=== PATIENT | female | born 1950 | race Caucasian/White ===

== ENCOUNTER 2019-04-04 09:19 | Outpatient (CLI) | payer MEDICARE, OTHER, SELFPAY ==
--- NOTE | ~2019-04-04 | MM_ITS ---
EXAMINATION: MM screening [facility] BI w keisha HISTORY: Screening mammogram TECHNIQUE: Craniocaudal and mediolateral oblique 3-D tomosynthesis images were obtained and synthetic 2-D images were generated. CAD analysis was submitted and interpreted. COMPARISON: 03/29/2018, 03/16/2017, 02/05/2015 BREAST PARENCHYMAL COMPOSITION: The breasts are heterogeneously dense, which may obscure small masses . FINDINGS: There is no evidence of suspicious mass, calcification, or architectural distortion to sugg est malignancy in either breast. There has been no suspicious interval change. IMPRESSION: 1. No mammographic evidence of malignancy. 2. Recommend routine screening mammography in one year. BI-RADS Category 1: Negative Reviewed, dictated and finalized at location A. OPERATOR
[2019-04-04 10:50] LABS: Hematocrit 40.4 % (37.0-47.0); Hemoglobin 13.5 g/dL (12.0-15.0); Mean Corpuscular HGB Conc 33.4 g/dl (32-36); Mean Corpuscular Volume 95.7 fl (80-100); Platelet Count Result 246 k/mm3 (150-375); Red Blood Count 4.22 M/mm3 (4.2-5.4); Red Cell Distribution Width 12.6 % (11.5-14.5); White Blood Count 6.7 K/mm3 (4.5-10.0)
[2019-04-04 11:03] LABS: Alanine Aminotransferase 24 U/L (4-35); Albumin Level 4.3 g/dL (3.5-5.1); Alkaline Phosphatase 66 U/L (38-126); Aspartate Amino Transferase 28 U/L (14-36); Bilirubin,Total 0.6 mg/dL (0.2-1.3); Blood Urea Nitrogen 14 mg/dL (7-17); Calcium 9.1 mg/dL (8.4-10.2); Carbon Dioxide 27 mmol/L (22-30); Chloride 99 mmol/L (98-107); Cholesterol 193 mg/dL (0-200); Estimated Glomerular Filt Rate > 60; Glucose 107 mg/dL (65-105); HDL Direct 81 mg/dL; Potassium 4.3 mmol/L (3.4-5.0); Sodium 134 mmol/L (137-145); Triglycerides 40 mg/dL (<150)
[2019-04-04 11:14] LABS: LDL Cholesterol Direct 95 mg/dL
[2019-04-04 11:33] LABS: Thyroid Stimulating Hormone 0.738 uIU/mL (0.465-4.680)
[2019-04-04 12:03] LABS: Free T4 Free Thyroxine 1.15 ng/mL (0.78-2.19)
== END 2019-04-04 09:20 | disposition home or self-care (01) ==
LOC: ANHIMG 09:22
PROVIDERS: PCP Internal Medicine; Visit Provider Obstetrics & Gynecology
DX: Z12.31 Encounter for screening mammogram for malignant neoplasm of breast (principal); R53.83 Other fatigue; E03.9 Hypothyroidism, unspecified; E78.00 Pure hypercholesterolemia, unspecified
CPT/HCPCS: 36415; 77063; 77067; 80053; 80061; 84439; 84443; 85027

== ENCOUNTER 2019-11-27 09:24 | Outpatient (CLI) | payer MEDICARE, SELFPAY ==
--- NOTE | ~2019-11-27 | CT_ITS ---
EXAMINATION: CT brain wo/w con DATE: 11/27/2019 10:05 INDICATION: Headache. TECHNIQUE: Computed tomography (CT) of the head was performed without and with 100 mL Omnipaque 350 i ntravenous contrast. The mA was adjusted according to patient size. Iterative reconstruction techniqu e was employed. The dose-length product was 1210.67 mGy-cm. COMPARISON: None FINDINGS: There is no intracranial hemorrhage, acute infarction, or abnormal intracranial mass lesion . The ventricles are normal in size. There is mucosal thickening in the paranasal sinuses including n ear complete opacification of left sphenoid sinus. There is sclerosis of the love of left sphenoid s inus, consistent with chronic sinusitis. The mastoid air cells are normal. The orbits are normal. IMPRESSION: 1. Normal brain. 2. Chronic sinusitis. Reviewed, dictated and finalized at location A.
[2019-11-27 09:58] LABS: Estimated Glomerular Filt Rate 55
== END 2019-11-27 09:25 | disposition home or self-care (01) ==
PROVIDERS: PCP Internal Medicine; Visit Provider Internal Medicine
DX: R51.0 Headache with orthostatic component, not elsewhere classified (principal); J32.9 Chronic sinusitis, unspecified
CPT/HCPCS: 70470; Q9967

== ENCOUNTER 2020-04-07 10:25 | Outpatient (CLI) | payer MEDICARE, SELFPAY ==
--- NOTE | ~2020-04-07 | MM_ITS ---
EXAMINATION: MM screening [facility] BI w keisha HISTORY: Screening mammogram TECHNIQUE: Craniocaudal and mediolateral oblique 3-D tomosynthesis images were obtained and synthetic 2-D images were generated. CAD analysis was submitted and interpreted. COMPARISON: April 04, 2019, March 29, 2018 and 03/16/2017 bilateral digital screening mammogram ex aminations BREAST PARENCHYMAL COMPOSITION: The breasts are heterogeneously dense, which may obscure small masses . FINDINGS: Stable mild fibroglandular asymmetry. There is no evidence of suspicious mass, calcificatio n, or architectural distortion to suggest malignancy in either breast. There has been no suspicious i nterval change. IMPRESSION: 1. No mammographic evidence of malignancy. 2. Recommend routine screening mammography in one year. BI-RADS Category 2: Benign finding(s). Reviewed, dictated and finalized at location A. UE KEEPER
== END 2020-04-07 10:26 | disposition home or self-care (01) ==
LOC: ANHIMG 10:29
PROVIDERS: PCP Internal Medicine; Visit Provider Obstetrics & Gynecology
DX: Z12.31 Encounter for screening mammogram for malignant neoplasm of breast (principal)
CPT/HCPCS: 77063; 77067

== ENCOUNTER 2020-06-07 10:34 | Emergency (ER) | payer MEDICARE, SELFPAY ==
--- NOTE | ~2020-06-07 | XR_ITS ---
EXAMINATION: XR ankle LT min 3V EXAM DATE: 06/07/2020 10:49 INDICATION: Injured on the treadmill. Pain posterior lt ankle. Initial encounter. TECHNIQUE: Left ankle frontal, lateral and oblique projections obtained and reviewed. There is no pr ior study for comparison. FINDINGS: The left ankle mortise appears intact. Unusually high arch, but similar appearance on prio r study. There are no acute fractures or dislocations identified. There is no subcutaneous gas. Th e soft tissue is unremarkable. There are no radiopaque foreign bodies. IMPRESSION: 1. XR ankle LT min 3V exam without acute osseous findings. Reviewed, dictated and finalized at location A.
[2020-06-07 10:43] VITALS: BP 168/68; PULSE 81; RESP 12; TEMP 36.3; O2SAT 100
--- NOTE | 2020-06-07 11:06 | ED.LOWEXIN ---
HPI - Extremity Injury (Lower) General Chief Complaint: Extremity Injury, Lower Stated Complaint: lt ankle injury Time Seen by Provider: 06/07/20 10:58 Source: patient and RN notes reviewed Mode of arrival: ambulatory Limitations: no limitations History of Present Illness HPI Narrative: Patient presents today complaining of left ankle pain. She was getting on her treadmill this morning and twisted her ankle at 745 this morning. She applied ice and currently rates her pain 4/10. She has taken no medication for pain prior to arrival. Pain increases with walking. She has been ambulating, only putting pressure on her heel. MD complaint: ankle injury Related Data Home Medications Medication Instructions Recorded Confirmed estradiol 1 gm VAGINAL WEEKLY 02/04/19 02/11/20 melatonin 5 mg capsule mg PO .hs PRN cap 02/04/19 02/11/20 multivitamin 1 tablet PO DAILY 02/04/19 02/11/20 cream base no.143 (bulk) 1 applic TOPICAL gm 02/05/19 02/11/20 magnesium 200 mg tablet 400 mg PO DAILY tablet 02/11/20 02/11/20 Allergies Allergy/AdvReac Type Severity Reaction Status Date / Time amoxicillin Allergy Mild rash Verified 06/07/20 10:46 Penicillins Allergy Mild RASH Verified 06/07/20 10:46 Review of Systems Review of Systems: Narrative: CONSTITUTIONAL: Denies body aches, fever, chills, or sweats. EYES: Denies visual changes, redness, or discharge. ENT: Denies rhinorrhea, congestion, sore throat, or otalgia. CARDIOVASCULAR: Denies chest pain, palpitations, or edema. RESPIRATORY: Denies cough or dyspnea. GASTROINTESTINAL: Denies abdominal pain, nausea, vomiting, or diarrhea. GENITOURINARY: Denies dysuria or hematuria. SKIN: Denies rash, itching, or wounds. MUSCULOSKELETAL: Denies back pain, or myalgia. + Left ankle pain NEUROLOGIC: Denies headache, numbness, tingling, or weakness. PSYCH: Denies depression or anxiety. [facility] Family History Family History Father Family history of lung cancer Patient's father is Social History Social History Smoking packs per day: 0.5 Smoking cigarettes per day: 10.0 Years smoked: 10 Smoking pack-years: 5.00 Smoking status: Former smoker Tobacco type: cigarettes Second hand tobacco smoke exposure: No Smoking end date: 02/26/09 Alcohol intake: current Comments At time of signature, I have reviewed and agree with nursing past medical, surgical, social and family history unless otherwise noted. Please see nursing chart for further information. There is no relevant family history pertinent to the presenting complaint Exam Narrative: Exam Narrative: GENERAL: Well-appearing, well-nourished, and in no acute distress. HEAD: Normocephalic, atraumatic. EYES: EOMI. No redness or drainage. Conjunctivae normal. ENT: Mucous membranes pink and moist. NECK: Normal AROM. CHEST: No respiratory distress. EXTREMITIES: Left ankle: Soft tissue tenderness posteriorly and below the lateral malleolus. No edema, ecchymosis to this area. No tenderness to the Achilles tendon. No tenderness to the lateral or medial malleolus. No tenderness to the plantar aspect of the calcaneus. No tenderness to the remainder of the foot, nor any edema or ecchymosis. Distal sensation intact. Capillary refill normal. Pedal pulse normal. Full range of motion of the ankle and all toes. SKIN: Warm, dry, no rash. Capillary refill normal. Normal skin turgor. NEURO: No focal deficits. Alert and oriented x3. Gait steady. PSYCH: Normal affect. No signs of depression or anxiety. Course Vital Signs Vital signs: Vital Signs Temperature 97.4 F L 06/07/20 10:43 Pulse Rate 81 06/07/20 10:43 Respiratory Rate 12 06/07/20 10:43 Blood Pressure 168/68 H 06/07/20 10:43 Pulse Oximetry 100 06/07/20 10:43 Temperature 97.4 F L 06/07/20 10:43 Pulse Rate 81 06/07/20 10:43
== END 2020-06-07 11:15 | disposition home or self-care (01) ==
PROVIDERS: Emergency Provider Nurse Practitioner; PCP Internal Medicine
DX: S93.402A Sprain of unspecified ligament of left ankle, initial encounter (principal); X50.9XXA Other and unspecified overexertion or strenuous movements or postures, initial encounter; Z87.891 Personal history of nicotine dependence
CPT/HCPCS: 73610; 99213; G0463

== ENCOUNTER 2021-04-29 09:07 | Outpatient (CLI) | payer MEDICARE, SELFPAY ==
--- NOTE | ~2021-04-29 | MM_ITS ---
EXAMINATION: MM screening [facility] BI w keisha HISTORY: Screening mammogram TECHNIQUE: Craniocaudal and mediolateral oblique 3-D tomosynthesis images were obtained and synthetic 2-D images were generated. CAD analysis was submitted and interpreted. COMPARISON: 04/07/2020, 04/04/2019, 03/29/2018 BREAST PARENCHYMAL COMPOSITION: The breasts are heterogeneously dense, which may obscure small masses . FINDINGS: There is no evidence of suspicious mass, calcification, or architectural distortion to sugg est malignancy in either breast. There has been no suspicious interval change. IMPRESSION: 1. No mammographic evidence of malignancy. 2. Recommend routine screening mammography in one year. BI-RADS Category 1: Negative Reviewed, dictated and finalized at location A. MENTAL METAL ERECTOR
== END 2021-04-29 09:08 | disposition home or self-care (01) ==
PROVIDERS: PCP Internal Medicine; Visit Provider Obstetrics & Gynecology
DX: Z12.31 Encounter for screening mammogram for malignant neoplasm of breast (principal)
CPT/HCPCS: 77063; 77067

== ENCOUNTER 2021-05-20 00:59 | Day surgery (SDC) | payer MEDICARE, SELFPAY ==
[2021-05-11 10:30] VITALS: BMI 23.4
[2021-05-20 06:46] VITALS: BP 133/82; PULSE 73; RESP 18; TEMP 36; O2SAT 99; BMI 25.2
[2021-05-20] MEDS: LACTATED RINGERS 1,000 ML 150 ML IV CONT (06:59)
--- NOTE | 2021-05-20 07:32 | WPDGICN ---
Assessment and Plan Assessment and plan (1) Encounter for screening colonoscopy: Code(s): Z12.11 - Encounter for screening for malignant neoplasm of colon Status: Acute Assessment and Plan: Patient presents for screening colonoscopy. She appears to be at average risk for colon polyps. Further recommendations will be given after endoscopy. GI Consult Note Consult date/time: 05/20/21 07:32 HPI: Brenda Alfred is a 70 year old female Presents for screening colonoscopy. Patient's current weight appetite and bowel movements are normal. She denies abdominal pain. She has had no bleeding. Family history noncontributory. Patient had a previous colonoscopy 2009 that was unremarkable. She presents today for routine colonoscopy neoplasia screening. Review of Systems Review of Systems: All systems reviewed & are unremarkable except as noted in HPI and below PMFSH Family History Family History Father Family history of lung cancer Patient's father is Social History Social History Smoking packs per day: 0.5 Smoking cigarettes per day: 10.0 Years smoked: 10 Smoking pack-years: 5.00 Smoking status: Former smoker Tobacco type: cigarettes Second hand tobacco smoke exposure: No Smoking end date: 02/26/09 Alcohol intake: current Drinks per week: 5 Living arrangements: with family Gender identity (if verbalized by the patient): Female Spiritual care concerns: No Meds Home Medications and Allergies Home Medications Medication Instructions Recorded Confirmed Type estradiol 1 gm VAGINAL WEEKLY 02/04/19 05/11/21 History melatonin 5 mg capsule 5 mg PO HS PRN cap 02/04/19 05/11/21 History multivitamin 1 tablet PO DAILY 02/04/19 05/11/21 History magnesium 200 mg tablet 400 mg PO DAILY tablet 02/11/20 05/11/21 History fluticasone propionate 50 2 spray INTRANASAL DAILY PRN #15.8 03/05/20 05/11/21 Rx mcg/actuation nasal ml spray,suspension levothyroxine 50 mcg tablet 50 mcg PO DAILY #30 tablet 04/22/21 05/11/21 Rx ascorbic acid (vitamin C) 500 mg PO DAILY 05/11/21 05/11/21 History cholecalciferol (vitamin D3) 25 mcg PO DAILY 05/11/21 05/11/21 History [Vitamin D3] zinc 50 mg PO DAILY 05/11/21 05/11/21 History Allergies Allergy/AdvReac Type Severity Reaction Status Date / Time No Known Allergies Allergy Verified 05/11/21 10:29 Vital Signs Vital Signs - 24 hr 05/20/21 06:46 Temperature 96.8 F L Pulse Rate 73 Respiratory Rate 18 Blood Pressure 133/82 Pulse Oximetry 99 Exam Narrative: Physical exam reveals patient to be alert. Vital signs stable. HEENT exam is unremarkable. Patient is anicteric. Lungs are clear to auscultation and percussion. Heart is without murmur or extra sounds. Abdomen bowel sounds are present soft nontender with no organomegaly. Digital external rectal exam is normal.
--- NOTE | 2021-05-20 07:51 | P.PNAN_ITS ---
Anes - Initial Pre Proc Eval Procedure: Operation Date: 05/20/21 08:00 Proposed Procedures p Screening Colonoscopy - Otis Sotelo MD Date/Time: 05/20/21 07:51 Surgeon: Otis Sotelo MD Pre Op Diagnosis: neoplasm screening Patient Data Age: 70 Gender: F Height: 1.7 m Weight: 73.2 kg Last Vital Signs Temp 36.0 C L 05/20/21 06:46 Pulse 73 05/20/21 06:46 Resp 18 05/20/21 06:46 BP 133/82 05/20/21 06:46 Pulse Ox 99 05/20/21 06:46 Allergies Allergy/AdvReac Type Severity Reaction Status Date / Time No Known Allergies Allergy Verified 05/11/21 10:29 Home Medications Medication Instructions Recorded Confirmed Type estradiol 1 gm VAGINAL WEEKLY 02/04/19 05/11/21 History melatonin 5 mg capsule 5 mg PO HS PRN cap 02/04/19 05/11/21 History multivitamin 1 tablet PO DAILY 02/04/19 05/11/21 History magnesium 200 mg tablet 400 mg PO DAILY tablet 02/11/20 05/11/21 History fluticasone propionate 50 2 spray INTRANASAL DAILY PRN #15.8 03/05/20 05/11/21 Rx mcg/actuation nasal ml spray,suspension levothyroxine 50 mcg tablet 50 mcg PO DAILY #30 tablet 04/22/21 05/11/21 Rx ascorbic acid (vitamin C) 500 mg PO DAILY 05/11/21 05/11/21 History cholecalciferol (vitamin D3) 25 mcg PO DAILY 05/11/21 05/11/21 History [Vitamin D3] zinc 50 mg PO DAILY 05/11/21 05/11/21 History Patient hx anesthesia problems: none Family hx anesthesia problems: none Results Review: All pre-operative results and documents have been reviewed as part of the pre-operative evaluation. PMFSH Past Medical History Medical History Hypothyroidism Family History Family History Father Family history of lung cancer Patient's father is Social History Social History Smoking packs per day: 0.5 Smoking cigarettes per day: 10.0 Years smoked: 10 Smoking pack-years: 5.00 Smoking status: Former smoker Tobacco type: cigarettes Second hand tobacco smoke exposure: No Smoking end date: 02/26/09 Alcohol intake: current Drinks per week: 5 Living arrangements: with family Gender identity (if verbalized by the patient): Female Spiritual care concerns: No Anes - Eval Final PreProcedure Day of Procedure 05/20/21 07:51 Patient weight: normal Heart: regular rate and rhythm Lungs: clear to auscultation Airway: Mallampati scale class II Neurological: alert and oriented Last oral intake: >/= 8 hours ASA classification: II Emergent: no Anesthetic plan: proceed Anesthesia type and monitoring: general GIVS and standard monitoring Results Review: All pre-operative results and documents have been reviewed as part of the pre-operative evaluation. Informed Consent: The patient's anesthetic plan and its attendant risks and bene fits were discussed with the patient/family/POA. Questions were solicited and answers provided to the satisfaction of the patient/family/POA.
[2021-05-20 08:40] VITALS: BP 126/70; PULSE 70; RESP 21; O2SAT 99
[2021-05-20 08:50] VITALS: BP 155/73; PULSE 68; RESP 24; O2SAT 100
[2021-05-20 09:00] VITALS: BP 140/85; PULSE 75; RESP 23; O2SAT 100
== END 2021-05-20 09:08 | disposition home or self-care (01) ==
PROVIDERS: PCP Internal Medicine; Visit Provider Internal Medicine Gastroenterology
PROC: 0DJD8ZZ Inspection of Lower Intestinal Tract, Via Natural or Artificial Opening Endoscopic (ICD-10-PCS; CPT 45378; principal; 2021-05-20 08:00)
DX: Z12.11 Encounter for screening for malignant neoplasm of colon (principal); D12.2 Benign neoplasm of ascending colon; K57.30 Diverticulosis of large intestine without perforation or abscess without bleeding; K64.8 Other hemorrhoids; E03.9 Hypothyroidism, unspecified; Z87.891 Personal history of nicotine dependence
CPT/HCPCS: 45385; 88305; J2704; J7120

== ENCOUNTER 2022-07-04 16:57 | Outpatient (CLI) | payer MEDICARE, SELFPAY ==
--- NOTE | ~2022-07-04 | XR_ITS ---
AP, oblique, and lateral views of the left great toe CLINICAL HISTORY: Pain FINDINGS: There is a transverse fracture through the distal portion of the first proximal phalanx, mi ldly displaced. No definite intra-articular extension. No other fracture or dislocation seen. Joint s paces are preserved. Soft tissues are unremarkable. IMPRESSION: Transverse, mildly displaced traumatic fracture of the distal portion of the first proximal phalanx. No definite intra-articular extension. Reviewed, dictated and finalized at location . IMPRESSION: Transverse, mildly displaced traumatic fracture of the distal portion of the fi rst proximal phalanx. No definite intra-articular extension.
--- NOTE | ~2022-07-04 | XR_ITS ---
Left ankle Technique: AP, oblique, and lateral views were obtained. Clinical History: Pain Findings: No acute fracture or dislocation is seen. Osseous alignment is anatomic. Ankle mortise and other visualized joint spaces are preserved. Soft tissues are otherwise unremarkable. Impression: Unremarkable left ankle. Reviewed, dictated and finalized at location . Impression: Unremarkable left ankle.
== END 2022-07-04 16:58 | disposition home or self-care (01) ==
PROVIDERS: PCP Internal Medicine; Visit Provider Internal Medicine
DX: S92.412A Displaced fracture of proximal phalanx of left great toe, initial encounter for closed fracture (principal); X58.XXXA Exposure to other specified factors, initial encounter
CPT/HCPCS: 73600; 73660

== ENCOUNTER 2022-08-16 08:37 | Outpatient (CLI) | payer MEDICARE, OTHER, SELFPAY ==
--- NOTE | ~2022-08-16 | MM_ITS ---
EXAMINATION: MM screening [facility] BI w keisha HISTORY: Screening mammogram TECHNIQUE: Craniocaudal and mediolateral oblique 3-D tomosynthesis images were obtained and synthetic 2-D images were generated. CAD analysis was submitted and interpreted. COMPARISON: 04/2021, 04/07/2020, 04/04/2019 bilateral screening mammogram examinations BREAST PARENCHYMAL COMPOSITION: The breasts are heterogeneously dense, which may obscure small masses . FINDINGS: There is no evidence of suspicious mass, calcification, or architectural distortion to sugg est malignancy in either breast. There has been no suspicious interval change. IMPRESSION: 1. No mammographic evidence of malignancy. 2. Recommend routine screening mammography in one year. BI-RADS Category 1: Negative Reviewed, dictated and finalized at location A.
== END 2022-08-16 08:38 | disposition home or self-care (01) ==
LOC: ANHIMG 08:39
PROVIDERS: PCP Internal Medicine; Visit Provider Obstetrics & Gynecology
DX: Z12.31 Encounter for screening mammogram for malignant neoplasm of breast (principal)
CPT/HCPCS: 77063; 77067

== ENCOUNTER 2022-10-16 13:08 | Outpatient (CLI) | payer MEDICARE, SELFPAY ==
[2022-10-16 14:28] LABS: Appearance Urine Cloudy (Clear); Bacteria Urine 4+ /hpf; Bilirubin Urine Negative (Negative); Blood Urine 2+ (Negative); Color Urine Yellow (Yellow); Glucose Urine UA Negative (Negative); Ketones Urine Negative (Negative); Leukocyte Esterase Ur 3+ LEU/UL (Negative); Nitrate Urine Positive (Negative); Non Pathogenic Casts 0-2; Protein Urine Negative (Negative); RBC Urine 21-50 /hpf (0-2); Specific Grav Ur 1.012 (1.001-1.035); Squamous Epithelial Cell Urine None seen /hpf (Few); Urobilinogen Urine 0.2 mg/dL (<2.0); WBC Urine >100 /hpf
[2022-10-16 14:40] LABS: Add Urine Microscopic? YES
== END 2022-10-16 13:09 | disposition home or self-care (01) ==
LOC: ANHLAB 13:09
PROVIDERS: PCP Internal Medicine; Visit Provider Internal Medicine
DX: R30.0 Dysuria (principal)
CPT/HCPCS: 81001; 87077; 87086; 87186

== ENCOUNTER 2023-08-12 02:40 | Emergency (ER) | payer MEDICARE, SELFPAY ==
[2023-08-12 02:52] VITALS: BP 143/70; PULSE 80; RESP 16; TEMP 36.7; O2SAT 99
[2023-08-12] MEDS: TETANUS,DIPHTHERIA,AC PERTUSSIS ADULT (0.5 ML) BOOSTRIX IM (03:17)
[2023-08-12] MEDS: ceFAZolin SODIUM 1 GM VIAL IV PUSH (03:17)
[2023-08-12] MEDS: ACETAMINOPHEN 500 MG TABLET 1000 MG PO (03:29)
--- NOTE | 2023-08-12 03:55 | ED.GENADULT ---
HPI - General Adult General Chief complaint: Extremity Injury, Upper Stated complaint: left arm wound Time Seen by Provider: 08/12/23 02:51 History of Present Illness HPI narrative: This is a 72-year-old female presenting ED with chief complaint of an arm laceration. Patient got up to use the restroom and tripped hitting her arm on a door stop. She sustained a large laceration to her left arm. No other injuries. no functional deficits to the hand. + ETOH. Related Data Home Medications Medication Instructions Recorded Confirmed estradiol 0.01% (0.1 mg/gram) 1 gm vaginal WEEKLY 02/04/19 07/04/23 vaginal cream (Estrace) melatonin 5 mg capsule 5 mg PO HS PRN Sleep 02/04/19 07/04/23 multivitamin (Multiple Vitamins 1 tablet PO DAILY 02/04/19 07/04/23 tablet) magnesium 200 mg tablet 400 mg PO DAILY 02/11/20 07/04/23 ascorbic acid (vitamin C) 500 mg 500 mg PO DAILY 05/11/21 07/04/23 tablet cholecalciferol (vitamin D3) 25 25 mcg PO DAILY 05/11/21 07/04/23 mcg (1,000 unit) tablet (Vitamin D3) zinc 50 mg tablet 50 mg PO DAILY 05/11/21 07/04/23 Allergies Allergy/AdvReac Type Severity Reaction Status Date / Time No Known Allergies Allergy Verified 08/12/23 03:00 [facility] Past Medical History Medical History Cataract Fracture of left great toe Hypothyroidism Surgical History Surgical History History of thyroid surgery Family History Family History Father Family history of lung cancer Patient's father is Social History Social History Smoking packs per day: 0.5 Smoking cigarettes per day: 10.0 Years smoked: 10 Smoking pack-years: 5.00 Smoking status: Former smoker Tobacco type: cigarettes Second hand tobacco smoke exposure: No Smoking end date: 02/26/09 Alcohol intake: current Drinks per week: 5 Lack of Transportation: No Lack of Food: Never True Current Housing: I Have Housing Concerned About Future Housing: No Difficulty Paying for Meds: No Currently Unemployed: No Education: High School Diploma/GED Difficulty w/ Childcare or Family Care: No Living arrangements: with family Gender identity (if verbalized by the patient): Female Spiritual care concerns: No Exam Narrative: APPEARANCE: No apparent distress. Head: atraumatic. EYES: EOMI, NOSE: Atraumatic NECK: Trachea midline RESPIRATORY: No increased rate of breathing CARDIOVASCULAR: RRR, ABDOMINAL: Non-distended MUSCULOSKELETAl: No obvious deformities NEURO: Alert. Moving /4 extremities SKIN:: 15 cm gaping laceration to the proximal left forearm with exposed muscle fascia. No injury to the deeper structures. PSYCHIATRIC: Normal affect Course Vital Signs Vital signs: Vital Signs Temperature 98.1 F 08/12/23 02:52 Pulse Rate 80 08/12/23 02:52 Respiratory Rate 16 08/12/23 02:52 Blood Pressure 143/70 H 08/12/23 02:52 Pulse Oximetry 99 08/12/23 02:52 Oxygen Delivery Room Air 08/12/23 02:52 Temperature 98.1 F 08/12/23 02:52 Pulse Rate 80 08/12/23 02:52 Respiratory Rate 16 08/12/23 02:52 Blood Pressure 143/70 H 08/12/23 02:52 Pulse Oximetry 99 08/12/23 02:52 Oxygen Delivery Room Air 08/12/23 02:52 Medical Decision Making MDM Narrative Medical decision making narrative: -Course: 72-year-old female presenting with a 15 cm laceration to superficial tissues of her left forearm. Patient given tetanus and Ancef. Wound is too large to be closed in the Emergency Department safely. no plastic surgery on-call in our hospital this weekend. Case was discussed with Dr. Booth. He recommended transfer for plastic surgery repair Patient will be transferred to [facility] ED for repair. Accepted under Dr. Ramirez. Yoshi
--- NOTE | 2023-08-12 04:36 | PC.NURSE ---
Pt accepted as ER to ER transfer to [facility]. Pt offered transport to [place] ED and declined. Pt to transport via [facility].
[2023-08-12 04:51] VITALS: BP 138/80; PULSE 78; RESP 16; O2SAT 100
== END 2023-08-12 04:52 | disposition short-term general hospital (02) ==
PROVIDERS: Emergency Provider Emergency Medicine; PCP Internal Medicine
DX: S41.112A Laceration without foreign body of left upper arm, initial encounter (principal); E03.9 Hypothyroidism, unspecified; Z23 Encounter for immunization; Z87.891 Personal history of nicotine dependence; W01.198A Fall on same level from slipping, tripping and stumbling with subsequent striking against other object, initial encounter
CPT/HCPCS: 90471; 90715; 96374; 99284; A9270; J0690

== ENCOUNTER 2023-10-10 13:52 | Outpatient (CLI) | payer MEDICARE, SELFPAY ==
--- NOTE | ~2023-10-10 | MM_ITS ---
EXAMINATION: MM screening [facility] BI w keisha HISTORY: Screening TECHNIQUE: Craniocaudal and mediolateral oblique 3-D tomosynthesis images were obtained and synthetic 2-D images were generated. CAD analysis was submitted and interpreted. COMPARISON: Comparison to multiple prior studies sequentially, with oldest reviewed study dated 03/16. BREAST PARENCHYMAL COMPOSITION: Not dense: There are scattered areas of fibroglandular density. FINDINGS: There is no evidence of suspicious mass, calcification, or architectural distortion to sugg est malignancy in either breast. There has been no suspicious interval change. IMPRESSION: 1. No mammographic evidence of malignancy. 2. Recommend routine screening mammography in one year. BI-RADS Category 1: Negative Reviewed, dictated and finalized at location B.
== END 2023-10-10 13:53 | disposition home or self-care (01) ==
LOC: ANHIMG 13:54
PROVIDERS: PCP Internal Medicine; Visit Provider Obstetrics & Gynecology
DX: Z12.31 Encounter for screening mammogram for malignant neoplasm of breast (principal)
CPT/HCPCS: 77063; 77067

== ENCOUNTER 2024-04-08 08:21 | Outpatient (CLI) | payer MEDICARE, SELFPAY ==
--- NOTE | ~2024-04-08 | MR_ITS ---
EXAMINATION: MR knee RT wo con DATE: 04/08/2024 08:53 INDICATION: Medial right knee pain TECHNIQUE: Magnetic resonance imaging (MRI) of the right knee was performed without intravenous contr ast. Sequences included coronal PD-weighted FSE, coronal PD-weighted FS FSE, coronal T1-weighted FSE , sagittal T2-weighted FSE, sagittal PD-weighted FS FSE and axial PD weighted fat saturated FSE. COMPARISON: None. FINDINGS: Medial compartment: Complex tear of the posterior body and posterior horn of the medial meniscus. The posterior horn is s mall with displacement of a small meniscal flap which extends anteriorly from the lateral side of the posterior horn. There is also inferior subluxation of the portion of the posterior body which extend s into the gutter along the posterior medial rim of the medial tibial plateau. Articular cartilage is normal. Lateral compartment: Lateral meniscus is normal. Articular cartilage is normal. Patellofemoral compartment: Small region of deep chondral ulceration without degenerative subchondral changes at the patellar api radha ridge and at the central aspect of the medial patellar facet with additional more extensive mild patellar cartilage thinning with scattered partial thickness chondral fissuring. Trochlear cartilage is normal. Ligaments and tendons: Anterior and posterior cruciate ligaments are normal. The medial collateral ligament and fibular jad ateral ligament complex are normal. The extensor mechanism is normal. The visualized medial and later al hamstring tendons as well as the iliotibial band are normal. Fluid: Small joint effusion with mild synovitis at the suprapatellar pouch. No loose osteochondral bodies id entified. Osseous/other: Normal marrow signal. This includes a couple small regions of red marrow reexpansion which remain hyp erintense on T1-weighted imaging in the proximal tibia and distal femur. No fracture or pathologic ma rrow replacing process. There is edema in the superficial suprapatellar fat pad which can be seen wit h fat pad impingement syndrome. IMPRESSION: 1. Complex tear with small displaced meniscal flap at the posterior body and posterior horn of the me dial meniscus. 2. 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 Reviewed, dictated and finalized at location A. UTER COMPOSITOR IMPRESSION: 1. Complex tear with small displaced meniscal flap at the posterior body and po sterior horn of the medial meniscus. 2. Mild patellofemoral osteoarthritis with moderate grade patellar chondromalac ia.
== END 2024-04-08 08:22 | disposition home or self-care (01) ==
LOC: GOSHIMG 08:21
PROVIDERS: PCP Nurse Practitioner Family; Visit Provider Nurse Practitioner Family
DX: S83.231A Complex tear of medial meniscus, current injury, right knee, initial encounter (principal); M25.461 Effusion, right knee; X58.XXXA Exposure to other specified factors, initial encounter; M17.11 Unilateral primary osteoarthritis, right knee
CPT/HCPCS: 73721

== ENCOUNTER 2024-10-28 15:59 | Outpatient (CLI) | payer MEDICARE, SELFPAY ==
--- NOTE | ~2024-10-28 | MM_ITS ---
EXAMINATION: MM screening [facility] BI w keisha HISTORY: Screening TECHNIQUE: Craniocaudal and mediolateral oblique 3-D tomosynthesis images were obtained and synthetic 2-D images were generated. CAD analysis was submitted and interpreted. COMPARISON: Mammograms from 10/10/2023 and 08/16/2022 BREAST PARENCHYMAL COMPOSITION: The breasts are heterogeneously dense, which may obscure small masses. FINDINGS: There is no evidence of suspicious mass, calcification, or architectural distortion to suggest malignancy. There has been no suspicious interval change. IMPRESSION: 1. No mammographic evidence of malignancy. Recommend routine screening mammography in one year. BI-RADS Category 2: Benign finding(s) Reviewed, dictated and finalized at location Q. IMPRESSION: 1. No mammographic evidence of malignancy. Recommend routine screening mammogra phy in one year. BI-RADS Category 2: Benign finding(s)
--- OUTSIDE RECORDS SUMMARY | 2024-10-28 16:03 | XMS_ITS | Clinical Summary ---
Author Organization [facility] Address [address] [place] [address] Care Team Providers Care Electronics Production Supervisor Name Role Phone Ewa Woodalldebra SANCHEZ-RFID SYSTEMS ENGINEER Primary Care Provider + Laura Goff PLASTICS SHEET FINISHING PRESS OPERATOR-RFID SYSTEMS ENGINEER Unavailable + Source Comments [facility],non-owned Affiliates and Associated Physician Practices is amultiple site organization consisting of ambulatory clinics and hospital sitesin [place], [place], [place] and [place]. This disclosure is being madepursuant to the Care Everywhere program and may not contain all information available regarding this patient. Last updated 17.[facility] Allergies No known active allergies Medications * Be aware that medications may not be up to date on this document. Alwaysverify current medications with the patient. multivitamin daily (THERAGRAN) tablet Take 1 Tab by mouth daily with food 0 11/17/2014 Active Calcium Carbonate-Vitam in D (CALCIUM 500 + D PO) Take 1 Tab by mouth 2 times daily Active melatonin 5 MG tablet Take 1 (one) tablet by mouth at bedtime Active Magnesium Oxide 500 MG Take 400 mg by mouth at bedtime Active Procto-Med HC 2.5 % cream 06/15/2021 Active Cetirizine HCl (ZYRTEC ALLERGY PO) Active Other Abdulaziz Three eye drops for dry eyes: 1 drop to each eye 2-3 times a day 07/12/2023 Active [place]-3 Fatty Acids (OMEGA 3 PO) Active Bioflavonoid Products (BIOFLEX PO) Active Levothyroxine Sodium (LIOTHYROXINE-L EVOTHYROXINE) 10-20 MCG CAPSULE Take 1 (one) capsule by mouth once daily Active Other DHA/Prog 15 /220 mg fpc cap Active Active Problems Problem Noted Date Diagnosed Date Leukopenia 10/15/2015 IgG lambda monoclonal gammopathy 11/17/2014 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 - Dermatology [address] [place] [address] Scar (Primary Dx); Personal history of skin cancer 09/09/2024 Travel 07/29/2024 10:40 AM CDT Office Visit [facility] - Dermatology [address], [address] [place] [address] Skin ulcer of scalp with fat layer exposed (HCC) (Primary Dx); Personal history of skin cancer 07/29/2024 Travel from Last 3 Months Immunizations Immunization Administration Dates Next Due Covid Moderna primary monovalent 12+ yr 0.5mL ,03/18/2020 Covid Pfizer primary monoval ent 12+ yr 0.3mL Purple cap 03/18/2021 INFLUENZA VACCINE, QUADR. (F LUZONE; FLULAVAL; FLUARIX; AFLURIA QUADRIVALENT; 6MO+), 0.5 ML (IIV4) 12/15/2022 INFLUENZA VACCINE, TRIV. (FL UZONE; FLULAVAL; FLUARIX; AFLURIA TRIVALENT; 6MO+), 0.5 ML (IIV3) 11/20/2023 TDAP, HISTORIC VACCINE 08/12/2023 ZOSTER VACCINE, LIVE 12/10/2014 Zoster Hzv Vacc Recombinant Inj Im 03/02/2020, Family History Medical History Relation Name Comments Arthritis - Osteo Mother Relation Name Status Comments Mother Social History Tobacco Use Types Packs/Day Years Used Date Smoking Tobacco: Former Smokeless Tobacco: Never Tobacco Cessation:Counseling Given: Not Answered Alcohol Use Standard Drinks/Week Comments Yes 4 (1 standard drink = 0.6 oz pur e alcohol) PHQ-2 Answer Date Recorded Patient Health Questionnaire-2 Score 0 09/09/2024 Comments No Sex and Gender Information Value Date Recorded Sex Assigned at Not on file Legal Sex Female 11:36 AM CDT Gender Identity Not on file Sexual Orientation Not on file Last Filed Vital Signs Vital Sign Reading Time Taken Comments Blood Pressure 146/88 07/09/2024 1:21 PM CDT Pulse 89 07/09/2024 1:21 PM CDT Temperature 36.7 C (98 F) 07/09/2024 1:21 PM CDT Respiratory Rate 18 05/27/2021 10:05 AM CDT Oxygen Saturation 95% 07/09/2024 1:21 PM CDT Inhaled Oxygen Concentration - - Weight 80.3 kg (177 lb 2 oz) 07/09/2024 1:21 PM CDT Height 170.2 cm (5' 7) 07/09/2024 1:21 PM CDT Body Mass Index 27.74 07/09/2024 1:21 PM CDT Plan of Treatment Upcoming Encounters Date Type Department Care Team (Late st Contact Info) Description 01/09/2025 10:00 AM MAT LINKER Office Visit [facility] [address] [place] [id number] Jag Chicas MD [address] [place] [id number] Health Maintenance Due Date Last Done Comments BONE DENSITY TESTING 1950 COLOGUARD (AGES 45-75) - COLON CA SCREENING 1950 COLON MONITORING 1950 COLONOSCOPY - COLON CA SCREENING 1950 CT COLONOGRAPHY - COLON CA SCREENING 1950 Colorectal Cancer Screening 1950 FIT - COLON CA SCREENING 1950 FLEX SIG - COLON CA SCREENING 1950 LIPID TESTING 1950 MAMMOGRAM 1950 MEDICARE AWV 12 MONTHS 1950 HEPATITIS C SCREENING 10/11/1969 PNEUMOCOCCAL VACCINE 50+ (1 of 2 - PCV) 10/15/1970 COVID-19 VACCINE ( - season) 2023 03/18/2021, 04/16/2020, 03/18/2020 INFLUENZA VACCINE (#1) 2024 11/20/2023, 2022 Respiratory Syncytial Virus (RSV) Vaccine Pt: or over 60 yrs (1 - 1-dose 75+ series) 10/15/2026 SCREENING FOR DIABETES 07/02/2027 , 01/03/2024, 07/06/2023, Additional history exists DTAP/TDAP/TD VACCINES (2 - Td or Tdap) 08/11/2033 08/12/2023 ZOSTER VACCINE Completed 03/02/2020, 11/27, 12/10/2014 DEPRESSION SCREENING Completed 07/09/2024, 07/12/2023, 06/16/2022, Additional history exists HEPATITIS B VACCINE Aged Out No longe r eligible based on patient's age to complete this topic HIB VACCINE Aged Out No longer eligi ble based on patient's age to complete this topic HPV VACCINE Aged Out No longer eligi ble based on patient's age to complete this topic MENINGOCOCCAL (Group B) VACCINE SHARED DECISION-MAKING Aged Out No longer eligible based on patient's age to complete this topic MENINGOCOCCAL GROUPS A/C/Y/W VACCINE Aged Out No longer eligible based on patient's age to complete this topic Procedures Procedure Name Priority Date/Time Associated Diagnosis Comments COMPREHENSIVE METABOLIC PANEL Routine 07/01/2024 10:04 AM CDT IgG lambda monoclonal gammopathy from Last 3 Months or Most Recently Relevant to Health Maintenance Results * (ABNORMAL) COMPREHENSIVE METABOLIC PANEL (07/01/2024 10:04 AM CDT) Glucose 115(H) 70 - 99 mg/dL [facility] INSURANCE BILL BUN 15 8 - 27 mg/dL [facility]UR[facility] BILL Creatinine 0.90 0.57 - 1.00 mg/dL [facility] INSURANCE BILL eGFR by CKD-EPI 68 >59 mL/min/1.7 3 [facility] INSURANCE BILL BUN/Creatinine Ratio 17 12 - 28 [facility] INSURANCE BILL Sodium 134 134 - 144 mmol/L [facility] INSURANCE BILL Potassium 4.9 3.5 - 5.2 mmol/L [facility] INSURANCE BILL Chloride 100 96 - 106 mmol/L [facility] INSURANCE BILL CO2 21 20 - 29 mmol/L [facility] INSURANCE BILL Calcium 9.2 8.7 - 10.3 mg/dL [facility] INSURANCE BILL Albumin 4.4 3.8 - 4.8 g/dL [facility] INSURANCE BILL Globulin Total 2.9 1.5 - 4.5 g/dL [facility] INSURANCE BILL Bilirubin Total 0.5 0.0 - 1.2 mg/dL [facility] INSURANCE BILL Alkaline Phosphatase 83 44 - 121 IU/L [facility] INSURANCE BILL AST 24 0 - 40 IU/L [facility] INSURANCE BILL ALT 24 0 - 32 IU/L [facility] INSURANCE BILL Blood BLOOD SPECIMEN / Unknown 07/01/2024 10:04 AM CDT 07/01/2024 Narrative [facility] INSURANCE BILL - 07/02/2024 11:11 AM CDT Performed at: - [address] [id number] Electrician Front: Magno Duffy PhD, Phone: [phone] Jag Chicas MD LAB - CHEMISTRY ORDERABLES Final Result [facility] INSURANCE BILL [address] [place] [address] from Last 3 Months or Most Recently Relevant to Health Maintenance Insurance MEDICARE [facility] MEDICARE Care Teams Electronics Production Supervisor Relationship Specialty Start Date End Date Danna Woodall APRN-CNP [address] [place] [address] PCP - General Nurse Practitioner 06/17/24 Laura Goff APRN-CNP [address] [address] PCP - Attributed-MSSP 06/26/24
--- OUTSIDE RECORDS SUMMARY | 2024-10-28 16:03 | XMS_ITS | Encounter Summary ---
Author Organization [facility] Address [address] [place] [address] Care Team Providers Care Jewel Bearing Turner Name Role Phone Elvis Laguna MD Primary Care Provider + Encounter Details Date Type Department Care Team (Latest Contact Info) Description 10/22/2002 Outpatient Historical [facility] STScott Young MD NO ADDRESS ON FILE DISORDER OF COCCYX NEC (Primary Dx) Social History Tobacco Use Types Packs/Day Years Used Date Smoking Tobacco: Never Assessed Comments Unknown Sex and Gender Information Value Date Recorded Sex Assigned at Not on file Legal Sex Female 5:16 AM TELEVISION SERVICE ENGINEER Gender Identity Not on file Sexual Orientation Not on file documented as of this encounter Plan of Treatment Not on file documented as of this encounter Visit Diagnoses Diagnosis Other disorder of coccyx- Primary documented in this encounter Care Teams Jewel Bearing Turner Relationship Specialty Start Date End Date Elvis Laguna MD [address] [place] [id number] PCP - General 10/22/02 documented as of this encounter
--- OUTSIDE RECORDS SUMMARY | 2024-10-28 16:03 | XMS_ITS | Clinical Summary ---
Author Organization [facility] Address [address] Attn: Epic Prelude ADT JOSE ENRIQUE MEADE [address] Care Team Providers Care Toy Designer Name Role Phone Elvis Laguna MD Primary Care Provider + Social History Tobacco Use Types Packs/Day Years Used Date Smoking Tobacco: Never Assessed Comments Unknown Sex and Gender Information Value Date Recorded Sex Assigned at Not on file Legal Sex Female 5:16 AM DECKHAND CLAM DREDGE Gender Identity Not on file Sexual Orientation Not on file Plan of Treatment Health Maintenance Due Date Last Done Comments DTAP/TDAP/TD VACCINES (1 - Tdap) 10/15/1970 BREAST CANCER SCREENING 1991 COLORECTAL SCREENING 10/15/1996 Colorectal Cancer Screening 10/15/1996 FIT-DNA Q 3 years 10/15/1996 FIT/FOBT Q 1 year 10/15/1996 Flex Sig/CT Colonography Q 5 years 10/15/1996 PNEUMOCOCCAL VACCINE 50+ YEARS (1 of 1 - PCV) 10/16/19 02 ZOSTER VACCINE (1 of 2) 10/15/2001 OSTEOPOROSIS SCREENING 10/15/2016 INFLUENZA VACCINE (#1) 2024 RSV VACCINE (60+ or ) (1 - 1-dose 75+ series) 10/15/2026 Care Teams Toy Designer Relationship Specialty Start Date End Date Elvis Laguna MD [address] [place] [address] PCP - General 10/22/02
== END 2024-10-28 16:00 | disposition home or self-care (01) ==
LOC: ANHFOHIMG 16:01
PROVIDERS: PCP Nurse Practitioner Family; Visit Provider Nurse Practitioner Family
DX: Z12.31 Encounter for screening mammogram for malignant neoplasm of breast (principal)
CPT/HCPCS: 77063; 77067